=== PATIENT | female | born 1975 | race Caucasian/White ===

== ENCOUNTER 2017-12-08 08:29 | Emergency (ER) | END 2017-12-08 09:57 | disposition home or self-care (01) ==

== ENCOUNTER 2019-02-12 12:38 | Emergency (ER) | payer SELFPAY ==
[~2019-02-12] VITALS: Ht 149.9 cm; Wt 49.8 kg
[~2019-02-12 12:38] MED LIST: DOCU-144 PO; FER325 PO; FOLI-49 PO; IBUP-1542 PO; MULTI PO; ONDA4TAB8 PO; THIA100T56 PO
[2019-02-12 12:46] VITALS: BP 122/73; PULSE 84; RESP 16; Ht 149.9 cm; Wt 49.8 kg
== END 2019-02-12 14:35 | disposition left against medical advice (07) ==
LOC: E/R 12:38
DX: Z53.21 Procedure and treatment not carried out due to patient leaving prior to being seen by health care provider (principal)

== ENCOUNTER 2019-02-16 15:18 | Emergency (ER) | payer MEDICAID ==
[~2019-02-16] VITALS: Ht 152.4 cm; Wt 48.9 kg
[2019-02-16 15:23] VITALS: Ht 152.4 cm; Wt 48.9 kg
[2019-02-16] MEDS ORDERED: MAGNESIUM SULFATE 2 GM, MULTIVITAMINS 10 ML, THIAMINE 100 MG, FOLIC ACID 1 MG in SOD CH... IV STA (17:44)
[2019-02-16] MEDS ORDERED: ACETAMINOPHEN 325 MG TAB PO PRN (18:00)
[2019-02-16] MEDS ORDERED: ONDANSETRON 4 MG INJ IV PRN (18:00)
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
[2019-02-16 20:28] VITALS: BP 108/70; PULSE 92; RESP 12
== END 2019-02-16 20:37 | disposition home or self-care (01) ==
LOC: E/R 15:18 → CANBEDREQ 19:38 → E/R 20:37
DX: D69.6 Thrombocytopenia, unspecified (principal); G92 Toxic encephalopathy; S40.021A Contusion of right upper arm, initial encounter; F17.210 Nicotine dependence, cigarettes, uncomplicated; T51.0X4A Toxic effect of ethanol, undetermined, initial encounter; X58.XXXA Exposure to other specified factors, initial encounter; Y92.9 Unspecified place or not applicable
CPT/HCPCS: 70450; 73562; 76705; 80053; 80307; 85025; 85610; 85730; 86850; 86900; 86901; 96374; J3411; J3475; J7030; Z7502; Z7610